=== PATIENT | female | born 1960 | race Caucasian/White ===

== ENCOUNTER → 2019-06-04 08:12 | Outpatient (CLI) | payer BC, SELFPAY ==
--- NOTE | ~2019-06-04 | US_ITS ---
US breast LT limited 06/04/2019 09:14 Indication: Follow-up left breast mass Procedure: High-resolution ultrasound of the left breast Comparison: Ultrasound from [facility] in [place], [place] dated 12/03/2018 Findings: There is an oval circumscribed anechoic mass with dependent echogenicity measuring 0.45 x 0 .25 x 0.2 cm compared with 5.5 x 2.8 x 3.2 cm on the prior examination. No additional masses are iden tified. This is compatible with a complicated cyst with layering milk of calcium located at 3:00, 10 cm from the nipple. Impression: 1: Decreased size of benign-appearing left breast mass at 3:00, 10 cm from the nipple, compatible wit h complicated cyst. Routine yearly screening mammogram and regular clinical breast examination are recommended. BI-RADS CATEGORY 2 - BENIGN FINDINGS Reviewed, dictated and finalized at location A. MAKING PLANT OPERATOR Impression: 1: Decreased size of benign-appearing left breast mass at 3:00, 10 cm from the nipple, compatible with complicated cyst. Routine yearly screening mammogram and regular clinical breast examination are recommended. BI-RADS CATEGORY 2 - BENIGN FINDINGS
== END ==
PROVIDERS: Visit Provider Obstetrics & Gynecology
DX: N60.09 Solitary cyst of unspecified breast (principal); R92.8 Other abnormal and inconclusive findings on diagnostic imaging of breast
CPT/HCPCS: 76642

== ENCOUNTER → 2019-06-04 08:18 | Outpatient (CLI) | payer BC, SELFPAY ==
--- NOTE | ~2019-06-04 | CT_ITS ---
EXAMINATION: CT chest wo con DATE: 06/04/2019 09:16 INDICATION: History of lung cancer TECHNIQUE: Computed tomography (CT) of the chest was performed without intravenous contrast. The dose -length product (DLP) was 279.02 mGy-cm. Automated exposure control and iterative reconstruction tech [employer] were employed. COMPARISON: 05/05/2015 FINDINGS: There are changes of left lower lobectomy with associated volume loss of the left hemithora x. Right lung nodules measuring up to 6 mm are stable, consistent with old granulomatous disease. No new or suspicious pulmonary nodule is identified. There is no pleural effusion or pneumothorax. No pa thologically enlarged thoracic lymph nodes are identified. The heart size is normal. There is a chron ic 1.2 cm nodule of the right thyroid lobe. A small sliding hiatal hernia is noted. There is mild tho racic spondylosis. IMPRESSION: 1. Changes of left lower lobectomy without suspicious findings. Old granulomatous disease of the righ t lung. Reviewed, dictated and finalized at location A. L SPRAY OPERATOR IMPRESSION: 1. Changes of left lower lobectomy without suspicious findings. Old granulomato us disease of the right lung.
== END ==
PROVIDERS: Visit Provider Internal Medicine Critical Care Medicine
DX: R91.8 Other nonspecific abnormal finding of lung field (principal)
CPT/HCPCS: 71250

== ENCOUNTER 2020-04-06 14:48 | Outpatient (CLI) | payer BC, SELFPAY ==
--- NOTE | ~2020-04-06 | CT_ITS ---
EXAMINATION: CT sinus wo con DATE: 04/06/2020 15:12 INDICATION: Chronic congestion, chronic sinusitis TECHNIQUE: Computed tomography (CT) of the paranasal sinuses was performed without contrast. Iterativ e reconstruction technique was employed. Exam dose: 311.14 mGy-cm total exam DLP. COMPARISON: None FINDINGS: There is a prominent bony spur along the left side of nasal septum and mild leftward bowing of the nasal septum. The nasal turbinates are moderately prominent in size, relatively symmetric. The ostiomeatal units are patent bilaterally. The mastoid air cells are normally developed and aerated. Middle and inner ear apparatus appear normal bilaterally. The paranasal sinuses are normally developed and aerated. No mucoperiosteal thickening, air-fluid lev el or soft tissue mass density is detected. IMPRESSION: Patent ostiomeatal units, paranasal sinuses and mastoid air cells Prominence of the nasal turbinates Mild leftward bowing and prominent bony spur of the left side of the nasal septum Reviewed, dictated and finalized at Location A. Reviewed, dictated and finalized at location A. ER IN IMPRESSION: Patent ostiomeatal units, paranasal sinuses and mastoid air cells Prominence of the nasal turbinates Mild leftward bowing and prominent bony spur of the left side of the nasal sept um
== END 2020-04-06 14:49 | disposition home or self-care (01) ==
PROVIDERS: PCP Internal Medicine; Visit Provider Nurse Practitioner Family
DX: J32.9 Chronic sinusitis, unspecified (principal)
CPT/HCPCS: 70486

== ENCOUNTER 2020-06-21 09:46 | Outpatient (CLI) | payer BC, SELFPAY | END 2020-06-21 09:47 | disposition home or self-care (01) | LOC: ANHCOVIDVC 09:46 | PROVIDERS: PCP Internal Medicine | DX: Z23 Encounter for immunization (principal) | CPT/HCPCS: 0001A; 91300 ==

== ENCOUNTER 2020-07-12 09:45 | Outpatient (CLI) | payer BC, SELFPAY | END 2020-07-12 09:46 | disposition home or self-care (01) | LOC: ANHCOVIDVC 09:45 | PROVIDERS: PCP Internal Medicine | DX: Z23 Encounter for immunization (principal) | CPT/HCPCS: 0002A; 91300 ==

== ENCOUNTER → 2020-10-24 10:43 | Outpatient (CLI) | payer BC, SELFPAY ==
--- NOTE | ~2020-10-24 | CT_ITS ---
EXAMINATION: CT diagnostic chest wo con DATE: 10/24/2020 11:03 INDICATION: Status post left lower lobectomy for lung cancer. History of partial resection of the rig ht lung at . TECHNIQUE: Computed tomography (CT) of the chest was performed without intravenous contrast. Automate d exposure control and iterative reconstruction technique were employed. Exam dose: 324.94 mGy-cm to charles exam DLP. COMPARISON: March 04, 2020 CT chest FINDINGS: Heart size is within normal range. No pericardial or pleural effusion. No hilar or mediastinal mass lesion or lymphadenopathy. No thoracic aortic aneurysm. Small sliding hiatal hernia. Status post left lower lobectomy. No infiltrate or consolidation or suspicious new or enlarging mass density of the lungs. Normal morphology of the adrenal glands. Status post cholecystectomy. Included skeletal structures are unremarkable. No suspicious osteolytic or osteoblastic lesions are n oted. IMPRESSION: Status post left lower lobectomy for history of lung cancer. No lung mass or interval hi lar or mediastinal lymphadenopathy Reviewed, dictated and finalized at Location A. Reviewed, dictated and finalized at location A. IMPRESSION: Status post left lower lobectomy for history of lung cancer. No ras ng mass or interval hilar or mediastinal lymphadenopathy
== END ==
PROVIDERS: PCP Nurse Practitioner Family; Visit Provider Nurse Practitioner Family
DX: Z85.118 Personal history of other malignant neoplasm of bronchus and lung (principal)
CPT/HCPCS: 71250

== ENCOUNTER 2021-01-19 09:53 | Outpatient (RCR) | payer BC, SELFPAY ==
[2021-01-19 11:04] VITALS: BP 142/88; PULSE 66; RESP 18; TEMP 36.4; O2SAT 98
[2021-01-19] MEDS: FAMOTIDINE 20 MG TABLET PO (11:05)
[2021-01-19] MEDS: diphenhydrAMINE HCl CAP 25 MG CAPSULE PO (11:05)
--- NOTE | 2021-01-19 11:15 | PC.NURSE ---
Patient received both [employer] vaccines in and 2020.
[2021-01-19 12:56] VITALS: BP 138/94; PULSE 74; RESP 18; TEMP 36.1; O2SAT 98
--- NOTE | 2021-01-20 13:53 | PC.NURSE ---
Called patient to follow-up regarding antibody infusion. Patient states they are feeling no worse than before treatment but she did experience some nausea that self-resolved. Denies any side effects at this time.
== END 2021-01-19 13:59 | disposition home or self-care (01) ==
LOC: AMCINF 09:53
PROVIDERS: PCP Physician Assistant Medical; Referring Provider Physician Assistant Medical; Visit Provider Internal Medicine Hematology & Oncology
DX: Z23 Encounter for immunization (principal); U07.1 COVID-19; J44.9 Chronic obstructive pulmonary disease, unspecified
CPT/HCPCS: A9270; J7050; M0243; Q0243

== ENCOUNTER 2021-10-03 08:27 | Outpatient (CLI) | payer BC, SELFPAY ==
--- NOTE | ~2021-10-03 | XR_ITS ---
EXAMINATION: XR UGIAC w barium swallow DATE: 10/03/2021 09:36 INDICATION: Vomiting TECHNIQUE: The patient drank thick barium, gas-producing crystals, and thin barium. Conventional supi ne abdomen radiographs and fluoroscopy of the esophagus, stomach, and proximal small bowel were perfo rmed. Fluoroscopy exposure time was 3.0 minutes. The DAP for this procedure was 25.4 Gycm2. COMPARISON: 08/06/2014 FINDINGS: There is no mass or stricture of the esophagus. Esophageal motility is normal. There is a s mall sliding hiatal hernia. There was spontaneous gastroesophageal reflux. The stomach and proximal s mall bowel show normal folding patterns. IMPRESSION: 1. Small sliding hiatal hernia with spontaneous gastroesophageal reflux. Reviewed, dictated and finalized at location A.
== END 2021-10-03 08:28 | disposition home or self-care (01) ==
PROVIDERS: PCP Internal Medicine; Visit Provider Internal Medicine Gastroenterology
DX: R11.10 Vomiting, unspecified (principal); K44.9 Diaphragmatic hernia without obstruction or gangrene
CPT/HCPCS: 74246

== ENCOUNTER 2022-02-26 08:29 | Outpatient (CLI) | payer BC, SELFPAY ==
--- NOTE | ~2022-02-26 | CT_ITS ---
EXAMINATION:CT diagnostic chest wo con DATE: 02/26/2022 08:52 INDICATION: Lung cancer. TECHNIQUE: Computed tomography (CT) of the chest was performed without intravenous contrast. Automate d exposure control and iterative reconstruction technique were employed. The dose-length product (DLP ) was 222.12 mGy-cm. COMPARISON: Chest CT 10/24/2020, 06/04/19 FINDINGS: There are changes of left lower lobectomy. There are multiple pulmonary nodules measuring u p to 5 mm, stable from 06/04/19, likely benign. No pleural effusion. The heart size is normal. No nicole cardial effusion. There is a small sliding hiatal hernia. There are changes of cholecystectomy. There is mild thoracic spondylosis. IMPRESSION: 1. No specific evidence of metastatic disease. Reviewed, dictated and finalized at location A. AGE CHECKER
== END 2022-02-26 08:30 | disposition home or self-care (01) ==
PROVIDERS: PCP Physician Assistant Medical; Visit Provider Nurse Practitioner Family
DX: C34.90 Malignant neoplasm of unspecified part of unspecified bronchus or lung (principal)
CPT/HCPCS: 71250

== ENCOUNTER 2022-05-15 08:09 | Outpatient (CLI) | payer BC, SELFPAY ==
--- NOTE | ~2022-05-15 | MM_ITS ---
EXAMINATION: MM screening terry BI w debbie HISTORY: Screening mammogram TECHNIQUE: Craniocaudal and mediolateral oblique 3-D tomosynthesis images were obtained and synthetic 2-D images were generated. CAD analysis was submitted and interpreted. COMPARISON: 06/04/2019 limited left breast ultrasound 11/25/2018 BREAST PARENCHYMAL COMPOSITION: The breasts are almost entirely fatty. FINDINGS: Occasional benign calcifications. There is no evidence of suspicious mass, calcification, or architectural distortion to suggest malignancy in either breast. There has been no suspicious int erval change. IMPRESSION: 1. No mammographic evidence of malignancy. 2. Recommend routine screening mammography in one year. BI-RADS Category 2: Benign finding(s). Reviewed, dictated and finalized at location A. RTMENTAL SHIPPING CLERK
== END 2022-05-15 08:10 | disposition home or self-care (01) ==
PROVIDERS: PCP Physician Assistant Medical; Visit Provider Obstetrics & Gynecology
DX: Z12.31 Encounter for screening mammogram for malignant neoplasm of breast (principal)
CPT/HCPCS: 77063; 77067

== ENCOUNTER 2022-07-30 09:59 | Outpatient (CLI) | payer BC, SELFPAY ==
--- NOTE | 2022-07-30 13:10 | WPDSIXMINUTE ---
Six Minute Walk Procedure Procedure Performed Pulmonary Stress Test (6 min walk) Six Minute Walk Six Minute Walk: This is a 6 minute walk test. The test was performed and interpreted in accordance with the 2014 ERS/ATS task force guidelines. Findings: The patient's resting room air oxygen saturation measured by pulse oximetry was 96% and heart rate was 81 bpm. Patient ambulated for 305 meters and oxygen saturation remained 92 to 97%. Heart rate at the end of the study was 98 bpm. The patient did not qualify for supplemental oxygen at rest or with ambulation. There are no prior studies for comparison.
--- NOTE | 2022-07-30 13:11 | P.PCNPFT_ITS ---
PFT Procedure Performed PFT Procedure Performed Spirometry with Pre/Post Bronchodilator Plethysmography (Lung Vol) Diffusing Cap (DLCO) Flow Vol Loop PFT Interpretation This is a pulmonary function test with pre and post-bronchodilator spirometry, plethysmography and diffusing capacity. The test was performed and results interpreted in accordance with the 2019 and 2005 ATS/ERS Task Force guidelines respectively using the Global Lung Function Initiative-2012 reference equations. Patient demonstrated good effort and cooperation. Reproducibility criteria were met. The quality of the pre bronchodilator spirometry maneuver was Grade B and post bronchodilator spirometry maneuver was Grade A. Findings: Spirometry: There is decreased maximal expiratory airflow at all lung volumes. The contour the inspiratory flow tracing is normal. The pre bronchodilator FVC is 2.94 L, 91% predicted. The pre bronchodilator FEV1 is 1.87 L, 74% predicted. The pre bronchodilator FEV1: FVC ratio is 64%. The post bronchodilator FVC is 2.83 L, representing a 4% decrease. The post bronchodilator FEV1 is 1.91 L, r epresenting a 2% increase. The post bronchodilator FEV1: FVC ratio was 67%. Plethysmography: The total lung capacity is 4.29 L, 84% predicted. The functional residual capacity is 2.52 L, 88% predicted. The residual volume is 1.35 L, 68% predicted. Diffusing capacity: The diffusing capacity unadjusted for hemoglobin and carboxyhemoglobin is 19.1, 88% predicted. The diffusing capacity adjusted for alveolar volume is 4.26, 95% predicted. In comparison to previous pulmonary function testing on 03/18/2015 the post bronchodilator FVC is unchanged from 2.80 L to 2.83 L. The post bronchodilator FEV1 is unchanged from 1.90 L to 1.91 L. The total lung capacity is unchanged from 4.07 L to 4.29 L. The functional residual capacity is unchanged from 2.25 L to 2.52 L. The residual volume is unchanged from 1.27 L to 1.35 L. The diffusing capacity unadjusted for hemoglobin and carboxyhemoglobin is increased from 13.1 to 19.1. The diffusing capacity adjusted for alveolar volume is unchanged from 4.13 to 4.26. Impression: The spirometry is normal without evidence of an obstructive abnormality. There is no significant improvement after inhaling a single dose of albuterol. The lung volumes are normal. The diffusing capacity is normal. Impression: There is a mild obstructive abnormality without significant improvement after inhaling a single dose of albuterol. The lung volumes are normal. The diffusing capacity is normal. In comparison to previous pulmonary function testing on 03/18/2015 there has been no significant change in the FVC, FEV1, total lung capacity, functional residual capacity, residual volume or diffusing capacity. Clinical correlation is recommended.
== END 2022-07-30 10:00 | disposition home or self-care (01) ==
PROVIDERS: PCP Physician Assistant Medical; Visit Provider Nurse Practitioner Family
DX: J44.9 Chronic obstructive pulmonary disease, unspecified (principal); R06.09 Other forms of dyspnea; R94.2 Abnormal results of pulmonary function studies
CPT/HCPCS: 94060; 94618; 94726; 94729

== ENCOUNTER → 2022-12-17 13:24 | Outpatient (CLI) | payer BC, SELFPAY ==
--- NOTE | ~2022-12-17 | XR_ITS ---
XR knee LT 3V 12/17/2022 13:50 Indication: Left knee pain after injury Procedure: 4 views left knee Comparison: 10/03/2020 Findings: There is moderate osteoarthritis of the left knee. No fracture, subluxation or dislocation. No joint effusion. No foreign bodies. Impression: 1: Moderate osteoarthritis of the left knee. Reviewed, dictated and finalized at location B. Impression: 1: Moderate osteoarthritis of the left knee.
--- NOTE | ~2022-12-17 | XR_ITS ---
AP view of the pelvis and AP and lateral views of the right hip Clinical history: Pain Findings: No acute fracture or dislocation is seen. Osseous alignment is anatomic. Bilateral hip and SI joint spaces are preserved. Soft tissues are unremarkable. Impression: No significant abnormality is seen. Reviewed, dictated and finalized at [facility]. Impression: No significant abnormality is seen.
== END ==
PROVIDERS: PCP Physician Assistant Medical; Visit Provider Physician Assistant Medical
DX: M25.551 Pain in right hip (principal); M17.12 Unilateral primary osteoarthritis, left knee
CPT/HCPCS: 73502; 73562

== ENCOUNTER → 2023-03-22 08:35 | Outpatient (CLI) | payer BC, SELFPAY ==
--- NOTE | ~2023-03-22 | CT_ITS ---
CT Scan of the Chest without Contrast: Clinical Indication: Lung cancer Technique: Contiguous sections were acquired throughout the chest without intravenous contrast. Dose reduction technique was used on this scan by utilizing automated exposure control and iterative recon struction technique. The dose-length product (DLP) was 270.09 mGy-cm. COMPARISON: 02/26/2022 Findings: There is no evidence of any significant mediastinal, hilar or axillary lymphadenopathy. The mediastin al soft tissues appear normal. There is no evidence of pleural or pericardial effusion. There is evidence of prior left lower lobectomy. Subcentimeter nodules in the right lower lobe are st able from prior exam.. Images through the upper abdomen reveal moderate hiatal hernia. Impression: No evidence for active malignancy or metastatic disease. Stable subcentimeter nodules in the right lo wer lobe. Status post left lower lobectomy. Reviewed, dictated and finalized at [facility]. GER AND SETTER Impression: No evidence for active malignancy or metastatic disease. Stable subcentimeter n odules in the right lower lobe. Status post left lower lobectomy.
== END ==
PROVIDERS: PCP Nurse Practitioner Family; Visit Provider Nurse Practitioner Family
DX: Z85.118 Personal history of other malignant neoplasm of bronchus and lung (principal)
CPT/HCPCS: 71250

== ENCOUNTER 2023-09-09 12:44 | Outpatient (CLI) | payer BC, SELFPAY ==
--- NOTE | ~2023-09-09 | MM_ITS ---
EXAMINATION: MM screening terry BI w debbie HISTORY: Screening TECHNIQUE: Craniocaudal and mediolateral oblique 3-D tomosynthesis images were obtained and synthetic 2-D images were generated. CAD analysis was submitted and interpreted. COMPARISON: 05/15/2022 BREAST PARENCHYMAL COMPOSITION: Not Dense: Breast are almost entirely fatty. FINDINGS: There is no evidence of suspicious mass, calcification, or architectural distortion to sugg est malignancy in either breast. There has been no suspicious interval change. IMPRESSION: 1. No mammographic evidence of malignancy. 2. Recommend routine screening mammography in one year. BI-RADS Category 1: Negative Reviewed, dictated and finalized at location B.
== END 2023-09-09 12:45 ==
LOC: MICIMG 12:45
PROVIDERS: PCP Obstetrics & Gynecology; Visit Provider Obstetrics & Gynecology
DX: Z12.31 Encounter for screening mammogram for malignant neoplasm of breast (principal)
CPT/HCPCS: 77063; 77067

== ENCOUNTER 2024-04-27 08:49 | Outpatient (CLI) | payer BC, SELFPAY ==
--- NOTE | ~2024-04-27 | CT_ITS ---
CT Scan of the Chest without Contrast: Clinical Indication: Lung cancer Technique: Contiguous sections were acquired throughout the chest without intravenous contrast. Dose reduction technique was used on this scan by utilizing automated exposure control and iterative recon struction technique. The dose-length product (DLP) was 273.86 mGy-cm. COMPARISON: 03/22/2023 Findings: There is no evidence of any significant mediastinal, hilar or axillary lymphadenopathy. The mediastin al soft tissues appear normal. There is no evidence of pleural or pericardial effusion. Stable 2 mm right upper lobe pulmonary nodule. Status post left lower lobectomy. Images through the upper abdomen reveal moderate hiatal hernia. Impression: No evidence for active malignancy or metastatic disease. Status post left lower lobectomy. Stable 2 mm right upper lobe pulmonary nodule. Reviewed, dictated and finalized at [facility]. DEALER Impression: No evidence for active malignancy or metastatic disease. Status post left lower lobectomy. Stable 2 mm right upper lobe pulmonary nodule.
== END 2024-04-27 08:50 | disposition home or self-care (01) ==
PROVIDERS: PCP Nurse Practitioner Family; Visit Provider Nurse Practitioner Family
DX: C34.90 Malignant neoplasm of unspecified part of unspecified bronchus or lung (principal); R91.1 Solitary pulmonary nodule
CPT/HCPCS: 71250

== ENCOUNTER 2024-06-15 08:23 | Outpatient (CLI) | payer BC, SELFPAY ==
--- NOTE | ~2024-06-15 | US_ITS ---
EXAMINATION: US thyroid DATE: 06/15/2024 08:39 INDICATION: Nontoxic goiter, unspecified. TECHNIQUE: Multiple ultrasound images of the thyroid were obtained. COMPARISON: Ultrasound 07/28/2018, chest CT 04/27/2024 FINDINGS: The right thyroid lobe measures 5.7 x 2.1 x 2.0 cm. The left thyroid lobe measures 4.2 x 1.0 x 1.2 c m. In the right thyroid lobe, there is a 2.8 cm almost entirely solid, hypoechoic, wider than tall n odule with smooth margin without echogenic foci (TI-RADS TR4), increased from 2.1 cm on 07/28/2018. IMPRESSION: 1. Right thyroid nodule. Ultrasound-guided fine needle aspiration is recommended. Reviewed, dictated and finalized at location B. IMPRESSION: 1. Right thyroid nodule. Ultrasound-guided fine needle aspiration is recommende d.
== END 2024-06-15 08:24 | disposition home or self-care (01) ==
PROVIDERS: PCP Physician Assistant Medical; Visit Provider Physician Assistant Medical
DX: E04.1 Nontoxic single thyroid nodule (principal)
CPT/HCPCS: 76536

== ENCOUNTER 2024-08-03 12:43 | Outpatient (CLI) | payer BC, SELFPAY ==
--- NOTE | ~2024-08-03 | US_ITS ---
EXAMINATION: US THYROID BIOPSY DATE: 08/03/2024 17:41 CDT INDICATION: TIRADs 4 nodule TECHNIQUE: The procedure for biopsy of the thyroid nodule and its benefits and risks were explained to the patie nt. Potential risk included were not limited to bleeding, infection, and nondiagnostic specimen. Limited ultrasound of the right lobe of the thyroid gland demonstrated a 22.4 x 15 x 16 mm nodule, pike itable for biopsy The neck was prepped and draped in the usual sterile manner. 6 cc 1% lidocaine was used for local an esthesia. [6 passes were made with a 25G needle into the right thyroid lesion. Appropriate needle l ocation was documented with continuous sonographic guidance. The specimens were passed to the cytopa thologist in the room who confirmed adequacy. All needles were removed and a sterile bandage applied over the biopsy site. The patient tolerated t he procedure without immediate complications or complaints. FINDINGS: Subsequent images demonstrate needles advanced into the lesion for biopsy. IMPRESSION: Technically successful ultrasound guided biopsy of right-sided thyroid nodule. Pathology pending Reviewed, dictated and finalized at location A.
--- OUTSIDE RECORDS SUMMARY | 2024-08-03 14:17 | XMS_ITS | Clinical Summary ---
Author Organization [facility] Address Count includes the [facility] [place] [address] Care Team Providers Care Sweet Pickled Fruit Maker Name Role Phone Cecil Jaramillo MD Primary Care Provider [phone] Jose Massey MD Unavailable [phone] Allergies Active Allergy Reactions Criticality Noted Date Comments Azithromycin Other (see comment) 12/26/2018 .. Ciprofloxacin Other (see comment) 12/26/2018 .. Penicillin V Rash Low 12/26/2018 Medications benzonatate 200 MG capsule Take 200 mg by mouth 2 (two) times daily. 0 05/15/19 19 Active YUVAFEM 10 MCG vaginal tablet INSERT 1 TABLET (10 MCG) BY VAGINAL ROUTE TWICE WEEKLY 3 09/26/19 19 Active WIXELA INHUB 250-50 MCG/DOSE inhaler USE 1 PUFF TWICE DAILY 0 11/18/19 19 Active metoprolol succinate ER 50 MG 24 hr tablet Take 100 mg by mouth daily. 5 11/11/19 19 Active montelukast 10 MG tablet Take 10 mg by mouth daily. 1 07/18/19 19 Active olopatadine 0.2 % Solution INSTILL 1 DROP INTO EACH EYE EVERY DAY 11 10/01/19 19 Active PAZEO 0.7 % ophthalmic solution 12/24/19 19 Active promethazine-codei ne 6.25-10 MG/5ML syrup TAKE 1-2 TEASPOONSFUL (5-10ML) BY MOUTH EVERY 6 HOURS NEEDED 0 05/03/19 19 Active rizatriptan 10 MG disintegrating tablet TAKE 1 TABLET BY MOUTH ONSET OF HEADACHE. MAY REPEAT 1 TIME 2 HOURS LATER 0 12/20/19 19 Active DALIRESP 500 MCG Tab Take by mouth daily. 11 12/20/19 19 Active SPIRIVA HANDIHALER 18 MCG inhalation capsule INHALATION INHALE 1 CAPSULE VIA HANDIHALER ONCE DAILY AT THE SAME TIME EVERY DAY 0 12/17/19 Active Na sulfate-K sulfate-Mg sulfate (SUPREP BOWEL PREP KIT) 17.5-3.13-1.6 GM/177ML SolutionIndication s:Screening for colon cancer Take 177 mLs by mouth every 12 (twelve) hours. Take as directed in the instructions 2 Bottle 12/27/19 Active cetirizine 10 MG chewable tablet Chew 10 mg by mouth daily. Active amlodipine 2.5 MG tablet Take 2.5 mg by mouth daily. Active Active Problems No known active problems Social History Tobacco Use Types Packs/Day Years Used Date Smoking Tobacco: Never Smokeless Tobacco: Never Alcohol Use Standard Drinks/Week Comments Yes 0 (1 standard drink = 0.6 oz pur e alcohol) Comments No Sex and Gender Information Value Date Recorded Sex Assigned at Not on file Legal Sex Female 8:07 PM CDT Gender Identity Not on file Sexual Orientation Not on file Last Filed Vital Signs Vital Sign Reading Time Taken Comments Blood Pressure 82/48 01/09/2019 11:19 AM CDT Pulse 72 01/09/2019 11:19 AM CDT Temperature 36.7 C (98 F) 01/09/2019 11:19 AM CDT Respiratory Rate 16 01/09/2019 11:19 AM CDT Oxygen Saturation 99% 01/09/2019 11:19 AM CDT Inhaled Oxygen Concentration - - Weight 79.4 kg (175 lb) 12/26/2018 2:26 PM CDT Height 161.3 cm (5' 3.5 ) 12/26/2018 2:26 PM CDT Body Mass Index 30.51 12/26/2018 2:26 PM CDT Plan of Treatment Health Maintenance Due Date Last Done Comments Annual Physical 1965 Hepatitis C 1980 DTaP, Tdap and Td Vaccines (1 - Tdap) 1981 Pneumococcal Vaccine: 50+ Years (1 of 1 - PCV) 2012 Zoster Vaccines (1 of 2) 2012 Mammogram Screening 02/20/2023 02/20/2021, 02/03/2020, 12/03/2018, Additional history exists COVID-19 Vaccine ( season) 2023 Colorectal Cancer Screening Colonoscopy (10 Years) 01/09/2029 01/09/2019 RSV Immunization or 60+ Years (1 - 1-dose 75+ series) 2037 Meningococcal B Vaccine Aged Out No l onger eligible based on patient's age to complete this topic Meningococcal Vaccine Aged Out No golden ciera eligible based on patient's age to complete this topic RSV Immunizations Under 20 Months Aged Out No longer eligible based on patient's age to complete this topic Procedures Procedure Name Priority Date/Time Associated Diagnosis Comments MG SCREENING W FABIAN FLETCHER DIGI Routine 02/20/2021 2:44 PM AVIATION NEUROPSYCHOLOGIST Visit for screening mammogram from Last 3 Months or Most Recently Relevant to Health Maintenance Results * MG SCREENING W FABIAN FLETCHER DIGI (02/20/2021 2:44 PM AVIATION NEUROPSYCHOLOGIST) Anatomical Region Laterality Modality Breast Bilateral Mammography 02/20/2021 5:08 PM AVIATION NEUROPSYCHOLOGIST Impressions 02/20/2021 5:11 PM AVIATION NEUROPSYCHOLOGIST IMPRESSION: 1. No mammographic evidence of malignancy. 2. BI-RADS Category 2 - benign findings. Annual screening mammography recommended. MQSA BI-RADS Categories: Category 0 - needs additional imaging evaluation. Category 1 - negative. Category 2 - benign findings. Category 3 - probably benign findings, but short interval follow-up is recommended. Category 4 - suspicious abnormality and biopsy should be considered though the lesion may well be benign. Category 5 - highly suggestive of malignancy and appropriate action should be taken. A) A negative report should not delay a biopsy if a dominant or clinically suspicious mass is present. B) Adenosis and dense breasts may obscure an underlying neoplasm. C) Study interpreted with computer aided detection. Referred By: TSERING CARR Interpreted By: Heather Resendiz, 02/20/2021 5:08 PM Narrative 02/20/2021 5:11 PM AVIATION NEUROPSYCHOLOGIST IMAGING STUDIES: Bilateral screening mammograms with computer-aided detection with 2-D and 3-D imaging. Tomosynthesis. DATE: 02/20/2021 2:28 PM HISTORY: scr . Grandmother diagnosed with breast carcinoma age 60. No current complaints. COMPARISON: 02/03/2020 TISSUE TYPE: The breast tissue is almost entirely fatty. FINDINGS: 1. Bilateral screening mammograms with computer detection with 2-D and 3-D imaging. Tomosynthesis. Fatty replaced fibroglandular tissue pattern is present. Benign calcification 2. No malignant microcalfcifications, new dominant masses, or architectural distortion. 3. No skin thickening or nipple retraction. Axillary regions are within normal limits. Tsering Carr MD MAMMO Final Resul t from Last 3 Months or Most Recently Relevant to Health Maintenance Insurance Shannan [id number] Shannan [address] Care Teams Sweet Pickled Fruit Maker Relationship Specialty Start Date End Date Cecil Jaramillo MD PCP - General INTERNAL MEDICINE 12/07/16 Jose Massey MD [facility]. [address] [address] Quentin Dough Mixer Helper CARDIOVASCULAR DISEASE 12/07/16
== END 2024-08-03 12:44 | disposition home or self-care (01) ==
PROVIDERS: PCP Physician Assistant Medical; Visit Provider Physician Assistant Medical
DX: E04.1 Nontoxic single thyroid nodule (principal)
CPT/HCPCS: 10005; 88172; 88173; 88305

== ENCOUNTER 2025-01-07 13:21 | Outpatient (CLI) | payer BC, SELFPAY ==
--- NOTE | ~2025-01-07 | MM_ITS ---
EXAMINATION: MM screening terry BI w debbie HISTORY: Screening TECHNIQUE: Craniocaudal and mediolateral oblique 3-D tomosynthesis images were obtained and synthetic 2-D images were generated. CAD analysis was submitted and interpreted. COMPARISON: Comparison to multiple prior studies sequentially, with oldest reviewed study dated 05/15/2022. BREAST PARENCHYMAL COMPOSITION: Not Dense: The breasts are almost entirely fatty. FINDINGS: There is no evidence of suspicious mass, calcification, or architectural distortion to suggest malignancy in either breast. There has been no suspicious interval change. IMPRESSION: 1. No mammographic evidence of malignancy. 2. Recommend routine screening mammography in one year. BI-RADS Category 1: Negative Reviewed, dictated and finalized at location B.
--- NOTE | ~2025-01-07 | DEXA_ITS ---
Bone Density Report Name: BEATRIS COLLAZO Age: 64 Sex: Female Ethnicity: White Date of : 1960 Indication: postmenopausal; screening for osteoporosis; asthma or emphysema; hysterectomy; Referring Provider: Jere, Tsering Stephens Study: Bone densitometry was performed. Exam Date: January 07, 2025 Accession number: [id number] Bone Density: Region BMD T-score Z-score Classification AP Spine(L1-L4) 0.869 -1.6 0.0 Osteopenia Femoral Neck (Left) 0.498 -3.2 -1.8 Osteoporosis Total Hip (Left) 0.592 -2.9 -1.8 Osteoporosis Femoral Neck (Right) 0.548 -2.7 -1.3 Osteoporosis Total Hip (Right) 0.604 -2.8 -1.7 Osteoporosis Total Hip Mean 0.598 -2.9 -1.8 Osteoporosis World Health Organization criteria for BMD impression classify patients as: Normal (T-score at or above -1.0), Osteopenia (T-score between -1.0 and -2.5), or Osteoporosis (T-score at or below -2.5). 10-year Fracture Risk: FRAX not reported because: Some T-score for Spine Total or Hip Total or Femoral Neck at or below -2.5 Clinical Information Provided by Patient: Has used the following medications: Vitamin D Has the following medical conditions: Asthma or Emphysema, Hysterectomy Patient maximum height was 63 Menopause Age: 47 Does not regularly consume dairy products Drinks caffeinated beverages Onset of menses at age 17 Number of children 2 Impression: The patient has osteoporosis, based on the Left Femoral Neck T-score. Discussion: INCREASED RISK OF FRACTURE. BONE DENSITY IS UNDESIRABLY LOW AT ONE OR MORE SKELETAL SITES, CONSISTENT WITH POSTMENOPAUSAL OSTEOPOROSIS. This patient's lowest T-score meets the World Health Organization's (WHO) criteria for osteoporosis at one or more sites (T-score -2.5 or below). In untreated patients, the risk of osteoporotic fracture increases approximately two-fold for each 1.0 SD decrease in T-score. Low bone density is not the only risk factor for fracture; also consider factors such as patient's age, frailty or poor health, risk of falling, risk of injury, previous osteoporotic fracture, family history of osteoporosis, cigarette smoking, low body weight, etc. Not everyone with low bone mineral density has osteoporosis; osteomalacia and other metabolic bone disorders should also be considered. Patients who have osteoporosis should be evaluated for specific diseases and conditions (secondary causes) that may cause or contribute to bone loss. The [place] [employer] (AACE) and National Osteoporosis Foundation (NOF) recommend pharmacologic intervention for all postmenopausal women whose T-score is in this range. The patient should follow a healthful lifestyle (good nutrition with adequate calcium and vitamin D, and appropriate weight-bearing exercise). Follow-Up: Consider a repeat BMD and Vertebral Fracture Assessment (VFA) exam in 2 years or sooner if medically necessary, to reassess this patient's status. Reported by: MARY LOU on 01/07/2025 2:04:00 PM. Reviewed, dictated and finalized at location A.
== END 2025-01-07 13:22 | disposition home or self-care (01) ==
LOC: MICIMG 13:21
PROVIDERS: PCP Obstetrics & Gynecology; Visit Provider Obstetrics & Gynecology
DX: Z01.419 Encounter for gynecological examination (general) (routine) without abnormal findings (principal); M85.88 Other specified disorders of bone density and structure, other site; M81.0 Age-related osteoporosis without current pathological fracture; Z78.0 Asymptomatic menopausal state; Z12.31 Encounter for screening mammogram for malignant neoplasm of breast
CPT/HCPCS: 77063; 77067; 77080

== ENCOUNTER 2025-04-02 13:22 | Outpatient (CLI) | payer BC, SELFPAY ==
--- NOTE | ~2025-04-02 | XR_ITS ---
XR knee LT min 4V 04/02/2025 13:37 Indication: Left knee pain Procedure: 5 views left knee Comparison: No prior studies for comparison. Findings: Moderate tricompartment osteoarthritis. No fracture, subluxation or dislocation. No significant joint effusion. No foreign bodies. Impression: 1: Moderate tricompartment osteoarthritis of the left knee. Reviewed, dictated and finalized at location O. 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
== END 2025-04-02 13:23 | disposition home or self-care (01) ==
LOC: MICIMG 13:23
PROVIDERS: PCP Physician Assistant Medical; Visit Provider Orthopaedic Surgery
DX: M17.12 Unilateral primary osteoarthritis, left knee (principal)
CPT/HCPCS: 73564